=== PATIENT | male | born 1950 | race Caucasian/White ===

== ENCOUNTER 2018-12-12 22:51 | Emergency (ER) | payer MEDICARE ==
[2018-12-12] MEDS ORDERED: Acetaminophen 500 MG TAB ONE (23:13)
[2018-12-12] MEDS ORDERED: Lidocaine 1% w/Epinephrine 1:100K 20 ML VIAL ONE (23:13)
--- NOTE | 2018-12-12 23:55 | CT ---
Exam: Head CT without contrast HISTORY: Fall. Evaluate for head laceration. COMPARISON: none FINDINGS: Hemorrhage: No intraparenchymal hemorrhage or extra-axial hematoma. Brain parenchyma: Cortical leggett-white matter differentiation is preserved. No mass effect or midline shift. Basilar cisterns are patent. Ventricular system: Ventricles and sulci are patent and symmetric. Calvarium: Intact. Right frontal scalp laceration. Sinuses and mastoid air cells: Adequate aeration. Facial bone: Indeterminate bilateral nasal bone fractures. No significant soft tissue swelling, sugge sting a chronic process. IMPRESSION: 1. No intracranial posttraumatic sequelae 2. Right frontal scalp laceration. Intact calvarium 3. Probable remote nasal bone fractures. Correlate clinically.
[2018-12-13] MEDS ORDERED: Bacitracin 1 PK ONE (00:52)
== END 2018-12-13 01:24 | disposition home or self-care (01) ==
LOC: ERS 22:51
DX: S01.81XA Laceration without foreign body of other part of head, initial encounter (principal); F17.210 Nicotine dependence, cigarettes, uncomplicated; W18.30XA Fall on same level, unspecified, initial encounter
CPT/HCPCS: 12011; 12053; 70450; J2001

== ENCOUNTER 2019-01-20 13:48 | Emergency (ER) | payer MEDICARE ==
[2019-01-20 14:26] LABS: Mean Corpuscular HGB CONC 34.8 g/dL (32.0-36.0); Mean Corpuscular Hemoglobin 30.3 pg (27.0-31.0); Mean Platelet Volume 8.3 fL (7.4-10.4); Platelet Count 166 thou/uL (130-400); Red Blood Cell (RBC) Count 3.97 mill/uL (4.70-6.10)
[2019-01-20 14:41] LABS: Band 39 % (5-11); Lymphocytes 11 % (21-51); MDiff Complete? YES; Metamyelocyte 3 % (0-0); Monocytes 8 % (0-10); Neutrophil 37 % (42-75); Platelet Morphology Comment Appears Adequate; Polychromasia SLIGHT = 2-3 cells (100X) (0-2/hpf); Reactive Lymphocytes 2 % (0-10); Toxic Granulation SLIGHT; Vacuoles SLIGHT
[2019-01-20 14:47] LABS: ALT (SGPT) 11 U/L (8-55); AST (SGOT) 15 U/L (5-34); Albumin 4.2 g/dL (3.4-4.8); Alkaline Phosphatase 38 U/L (40-110); Anion Gap 16 mmol/L (10-20); BUN (Urea Nitrogen) 34 mg/dL (8.4-25.7); Bilirubin, Total 0.5 mg/dL (0.2-1.2); Calc. Creatinine Clearance 0 mL/min (70-130); Calcium 8.3 mg/dL (7.8-10.44); Carbon Dioxide 18 mmol/L (23-31); Chloride 101 mmol/L (98-107); Estimated GFR-MDRD 22; Globulin 3.2 g/dL (2.4-3.5); Glucose 145 mg/dL (80-115); Potassium 3.3 mmol/L (3.5-5.1); Protein, Total 7.4 g/dL (5.8-8.1); Sodium 132 mmol/L (136-145)
[2019-01-20] MEDS ORDERED: Ondansetron PF 4 MG/2 ML Vial ONE (15:06)
[2019-01-20 17:41] LABS: Lactic Acid 1.3 mmol/L (0.5-2.2)
== END 2019-01-20 17:45 | disposition home or self-care (01) ==
LOC: ERS 13:48
DX: K52.9 Noninfective gastroenteritis and colitis, unspecified (principal); R11.2 Nausea with vomiting, unspecified; I10 Essential (primary) hypertension; F17.210 Nicotine dependence, cigarettes, uncomplicated; Z79.82 Long term (current) use of aspirin; Z79.899 Other long term (current) drug therapy
CPT/HCPCS: 36415; 80053; 83605; 83690; 85025; 93005; 96361; 96374; J2405

== ENCOUNTER 2023-05-31 | Emergency (ER) | payer MEDICARE | END 2023-05-31 23:54 | disposition left against medical advice (07) | DX: R31.9 Hematuria, unspecified (principal); Z53.21 Procedure and treatment not carried out due to patient leaving prior to being seen by health care provider ==